=== PATIENT | male | born 1960 | race Caucasian/White ===

== ENCOUNTER 2017-10-07 15:45 | Outpatient (RCR) | payer BC ==
[~2017-10-07 15:45] MED LIST: AMITRIPTYLINE H25 M1 PO; CEPHALEXIN500 M1 PO; FISH OIL1 IU PO; FISH OIL1000 MG PO; GLUCOSAMINE & C1 CA1 PO; GLUCOSAMINE/CHONDROI PO; LORTAB 5/500 501 TAB PO; MULTIPLE VITAMI1 TAB PO; MVI; PRIL40 PO; PRINIVIL10 MG PO; ULTRAM 50MG TAB50 MG PO; ULTRAM PO; ULTRAM50 MG PO
== END 2017-12-07 14:45 | disposition home or self-care (01) ==
LOC: WSPT
DX: M48.062 Spinal stenosis, lumbar region with neurogenic claudication (principal)

== ENCOUNTER → 2017-12-02 | Outpatient (CLI) | payer BC | LOC: COL.RAD 12:00 | DX: E04.1 Nontoxic single thyroid nodule (principal) ==

== ENCOUNTER → 2017-12-07 | Outpatient (CLI) | payer BC | LOC: MHCPAIN 12:07 | DX: G89.29 Other chronic pain (principal); M47.817 Spondylosis without myelopathy or radiculopathy, lumbosacral region; M54.16 Radiculopathy, lumbar region; M53.3 Sacrococcygeal disorders, not elsewhere classified; M96.1 Postlaminectomy syndrome, not elsewhere classified | CPT/HCPCS: G0463 ==

== ENCOUNTER → 2018-01-21 | Outpatient (CLI) | payer BC | LOC: MHCPAIN 10:37 | DX: G89.29 Other chronic pain (principal); M47.817 Spondylosis without myelopathy or radiculopathy, lumbosacral region; M54.16 Radiculopathy, lumbar region; M53.3 Sacrococcygeal disorders, not elsewhere classified; M96.1 Postlaminectomy syndrome, not elsewhere classified | CPT/HCPCS: G0463 ==

== ENCOUNTER 2018-02-18 07:46 | Day surgery (SDC) | payer BC ==
[~2018-02-18] VITALS: Ht 180.3 cm; Wt 105.2 kg
[2018-02-18 08:22] VITALS: BP 148/82; PULSE 63; TEMP 97.6
[2018-02-18] MEDS ORDERED: HYGROTON 2525 MG/TAB PO (08:32)
[2018-02-18] MEDS ORDERED: ATARAX 25MG25 MG/TAB PO (08:33)
[2018-02-18] MEDS ORDERED: COZAAR100 MG PO (08:34)
[2018-02-18] MEDS ORDERED: CATAPRES 0.1MG0.1 MG PO (08:34)
[2018-02-18] MEDS ORDERED: OMEGA-31 SGL PO (08:35)
[2018-02-18] MEDS ORDERED: SINGULAIR 110 MG/TAB PO (08:36)
[2018-02-18] MEDS ORDERED: CYMBALTA 60MG60 MG PO (08:37)
[2018-02-18] MEDS ORDERED: NEURONTIN300 MG/CAP PO (08:41)
[2018-02-18] MEDS ORDERED: LIPITOR20 MG PO (08:42)
[2018-02-18] MEDS ORDERED: ASPIRIN 32325 MG/TAB PO (08:43)
[2018-02-18 11:26] VITALS: BP 95/77; PULSE 63; TEMP 98
[2018-02-18 11:45] VITALS: BP 102/69; PULSE 63
[2018-02-18 12:00] VITALS: BP 108/73; PULSE 63
== END 2018-02-18 13:10 | disposition home or self-care (01) ==
LOC: SDCO 07:46
DX: M96.1 Postlaminectomy syndrome, not elsewhere classified (principal); I10 Essential (primary) hypertension; G89.29 Other chronic pain; M53.3 Sacrococcygeal disorders, not elsewhere classified; M54.16 Radiculopathy, lumbar region; M47.817 Spondylosis without myelopathy or radiculopathy, lumbosacral region; G47.33 Obstructive sleep apnea (adult) (pediatric); F32.9 Major depressive disorder, single episode, unspecified; M19.90 Unspecified osteoarthritis, unspecified site; E66.9 Obesity, unspecified; Z68.31 Body mass index [BMI] 31.0-31.9, adult; Z82.49 Family history of ischemic heart disease and other diseases of the circulatory system; Z83.3 Family history of diabetes mellitus; Z96.641 Presence of right artificial hip joint
CPT/HCPCS: C1778; J0690; J2250; J7120

== ENCOUNTER → 2018-02-25 | Outpatient (CLI) | payer BC ==
[~2018-02-25] MED LIST changes: +ASPIRIN 32325 MG/TAB PO; +ATARAX 25MG25 MG/TAB PO; +CATAPRES 0.1MG0.1 MG PO; +COZAAR100 MG PO; +CYMBALTA 60MG60 MG PO; +HYGROTON 2525 MG/TAB PO; +LIPITOR20 MG PO; +NEURONTIN300 MG/CAP PO; +OMEGA-31 SGL PO; +SINGULAIR 110 MG/TAB PO
== END ==
LOC: MHCPAIN 09:53
DX: G89.29 Other chronic pain (principal); M47.817 Spondylosis without myelopathy or radiculopathy, lumbosacral region; M54.16 Radiculopathy, lumbar region; M53.3 Sacrococcygeal disorders, not elsewhere classified; M96.1 Postlaminectomy syndrome, not elsewhere classified
CPT/HCPCS: G0463

== ENCOUNTER → 2018-03-25 | Day surgery (SDC) | payer BC ==
[2018-03-25 11:50] LABS: BASO # 0.1 (0.0-0.2); BASO % 1.4 % (0.0-2.0); EOS # 0.3 (0.0-0.7); EOS % 5.2 % (0-4.0); GRAN # 3.5 (1.4-6.5); GRAN % 55.2 % (42.2-75.2); HEMOGLOBIN 11.9 g/dl (13.5-18.0); LYMPH # 1.7 (1.2-3.4); LYMPH % 27.2 % (20.0-51.0); MEAN CELL VOLUME 90 fl (80.0-100.0); MEAN CORPUSCULAR HEMOGLOBIN 30 pg (27.0-31.0); MEAN CORPUSCULAR HGB CONC 34 g/dl (33.0-37.0); MEAN PLATELET VOLUME 8.8 fl (7.4-10.4); MONO # 0.7 (0.1-0.6); MONO % 10.7 % (1.7-9.3); PLATELET COUNT 338 K/mm3 (130-400); RED BLOOD COUNT 3.91 M/mm3 (4.20-5.60); REDCELL DISTRIBUTION WIDTH-CV 13.2 % (11.5-14.5)
[2018-03-25 12:08] LABS: MUCOUS Present /lpf; PH 5 (5-8); SQUAMOUS EPITHELIAL None Seen /hpf; URINE APPEARANCE Clear; URINE BACTERIA None Seen /hpf; URINE BILIRUBIN Negative (NEGATIVE); URINE BLOOD Negative (NEGATIVE); URINE COLOR Yellow; URINE GLUCOSE Negative (NEGATIVE); URINE KETONE Negative (NEGATIVE); URINE LEUKOCYTE ESTERASE Negative (NEGATIVE); URINE NITRATE Negative (NEGATIVE); URINE PROTEIN(semi-quant) Negative (NEGATIVE); URINE RBC 0-2 /hpf; URINE UROBILINOGEN Negative (NEGATIVE); URINE WBC 0-2 /hpf
[2018-03-25 12:13] LABS: COLLECTION METHOD CLEAN CATCH
[2018-03-25 12:23] LABS: ERYTHROCYTE SEDIMENTATION RATE 1 mm/hr (0-30)
[2018-03-25 12:25] LABS: ALBUMIN 4.2 gm/dL (3.5-5.0); BILIRUBIN,TOTAL 0.2 mg/dL (0.0-1.0); C-REACTIVE PROTEIN 0.8 mg/dL (0.0-0.9); CALCIUM 9.2 mg/dL (8.4-10.2); CREATININE, serum 1.06 mg/dL (0.66-1.25); POTASSIUM 3.8 mmol/L (3.4-5.0); TOTAL PROTEIN 7.3 gm/dL (6.4-8.2)
== END ==
LOC: SDCO 10:54
PROVIDERS: Anesthesiology Pain Medicine
DX: M96.1 Postlaminectomy syndrome, not elsewhere classified (principal); Z53.8 Procedure and treatment not carried out for other reasons; G89.29 Other chronic pain; M54.5 Low back pain; M53.3 Sacrococcygeal disorders, not elsewhere classified; M43.07 Spondylolysis, lumbosacral region; I10 Essential (primary) hypertension

== ENCOUNTER → 2018-04-12 | Outpatient (CLI) | payer BC ==
[~2018-04-12] MED LIST changes: +VITAMIN FLUSH-F1 CAP PO
== END ==
LOC: MHCPAIN 16:23
DX: G89.29 Other chronic pain (principal); M47.817 Spondylosis without myelopathy or radiculopathy, lumbosacral region; M54.16 Radiculopathy, lumbar region; M53.3 Sacrococcygeal disorders, not elsewhere classified; M96.1 Postlaminectomy syndrome, not elsewhere classified
CPT/HCPCS: G0463

== ENCOUNTER 2018-04-29 08:54 | Day surgery (SDC) | payer BC ==
[~2018-04-29] VITALS: Ht 180.3 cm; Wt 104.6 kg
[2018-04-29] MEDS ORDERED: NITROSTAT0.4 MG/TAB SL (09:32)
[2018-04-29] MEDS ORDERED: TYLENOL 325MG325 MG PO (09:32)
[2018-04-29] MEDS ORDERED: CATAPRES 0.1MG0.1 MG PO (09:33)
[2018-04-29] MEDS ORDERED: ATARAX 25MG25 MG/TAB PO (09:35)
[2018-04-29] MEDS ORDERED: MOBIC15 MG PO (09:35)
[2018-04-29] MEDS ORDERED: FISH OIL 1000MG1 CAP PO (09:36)
[2018-04-29 10:18] VITALS: BP 133/87; PULSE 70; TEMP 97.8
[2018-04-29 14:08] VITALS: BP 118/77; PULSE 68; TEMP 97.3
[2018-04-29 14:15] VITALS: BP 123/68; PULSE 68
[2018-04-29 14:30] VITALS: BP 113/62; PULSE 81
[2018-04-29 14:45] VITALS: BP 114/60; PULSE 95
[2018-04-29] MEDS ORDERED: NORCO 325 MG-51 TAB PO (14:51)
== END 2018-04-29 15:30 | disposition home or self-care (01) ==
LOC: SDCO 08:54
DX: M96.1 Postlaminectomy syndrome, not elsewhere classified (principal); M47.817 Spondylosis without myelopathy or radiculopathy, lumbosacral region; M53.3 Sacrococcygeal disorders, not elsewhere classified; M54.5 Low back pain; G89.29 Other chronic pain; G47.33 Obstructive sleep apnea (adult) (pediatric); I10 Essential (primary) hypertension; M51.36 Other intervertebral disc degeneration, lumbar region
CPT/HCPCS: J0690; J2250; J2704; J3010; J3370; J7120

== ENCOUNTER → 2018-05-06 | Outpatient (CLI) | payer BC ==
[~2018-05-06] MED LIST changes: +FISH OIL 1000MG1 CAP PO; +MOBIC15 MG PO; +NITROSTAT0.4 MG/TAB SL; +NORCO 325 MG-51 TAB PO; +TYLENOL 325MG325 MG PO
== END ==
LOC: MHCPAIN 08:06
DX: G89.29 Other chronic pain (principal); M47.817 Spondylosis without myelopathy or radiculopathy, lumbosacral region; M54.16 Radiculopathy, lumbar region; M53.3 Sacrococcygeal disorders, not elsewhere classified; M96.1 Postlaminectomy syndrome, not elsewhere classified
CPT/HCPCS: G0463

== ENCOUNTER → 2018-06-07 | Outpatient (CLI) | payer BC | LOC: MHCPAIN 14:23 | DX: G89.29 Other chronic pain (principal); M47.817 Spondylosis without myelopathy or radiculopathy, lumbosacral region; M54.16 Radiculopathy, lumbar region; M53.3 Sacrococcygeal disorders, not elsewhere classified; M96.1 Postlaminectomy syndrome, not elsewhere classified | CPT/HCPCS: G0463 ==

== ENCOUNTER → 2018-09-01 | Outpatient (CLI) | payer BC | LOC: MHCPAIN 10:58 | DX: M53.3 Sacrococcygeal disorders, not elsewhere classified (principal) | CPT/HCPCS: G0260; J1040; Q9967 ==

== ENCOUNTER → 2018-10-11 | Outpatient (CLI) | payer BC | LOC: MHCPAIN 12:46 | DX: G89.29 Other chronic pain (principal); M47.817 Spondylosis without myelopathy or radiculopathy, lumbosacral region; M54.16 Radiculopathy, lumbar region; M53.3 Sacrococcygeal disorders, not elsewhere classified; M96.1 Postlaminectomy syndrome, not elsewhere classified | CPT/HCPCS: G0463 ==

== ENCOUNTER → 2018-10-11 | Outpatient (CLI) | payer BC | LOC: COL.RAD 14:09 | DX: M96.1 Postlaminectomy syndrome, not elsewhere classified (principal) ==

== ENCOUNTER 2018-12-22 16:00 | Outpatient (RCR) | payer BC ==
[2018-12-24] MEDS ORDERED: OMNICEF 300MG300 MG PO (20:41)
[2018-12-24] MEDS ORDERED: DOXYCYCLINE 10100 MG PO (20:41)
== END 2018-12-30 14:32 | disposition home or self-care (01) ==
LOC: WSC 16:00
DX: M96.1 Postlaminectomy syndrome, not elsewhere classified (principal); G89.29 Other chronic pain; Z98.1 Arthrodesis status; Z96.9 Presence of functional implant, unspecified

== ENCOUNTER 2018-12-24 18:49 | Emergency (ER) | payer BC ==
[~2018-12-24] VITALS: Ht 180.3 cm; Wt 104.5 kg
[2018-12-24 18:53] VITALS: TEMP 98.1
[2018-12-24] MEDS ORDERED: DOXYCYCLINE 10100 MG PO (20:41)
[2018-12-24] MEDS ORDERED: OMNICEF 300MG300 MG PO (20:41)
[2018-12-24 20:58] VITALS: BP 118/77; PULSE 76
== END 2018-12-24 20:59 | disposition home or self-care (01) ==
LOC: COL.ER 18:49
DX: L03.116 Cellulitis of left lower limb (principal); L03.115 Cellulitis of right lower limb

== ENCOUNTER → 2019-01-03 | Outpatient (CLI) | payer BC ==
[~2019-01-03] MED LIST changes: +DOXYCYCLINE 10100 MG PO; +OMNICEF 300MG300 MG PO
== END ==
LOC: MHCPAIN 13:28
DX: G89.29 Other chronic pain (principal); M47.817 Spondylosis without myelopathy or radiculopathy, lumbosacral region; M54.16 Radiculopathy, lumbar region; M53.3 Sacrococcygeal disorders, not elsewhere classified; M96.1 Postlaminectomy syndrome, not elsewhere classified
CPT/HCPCS: G0463

== ENCOUNTER 2019-01-12 07:24 | Day surgery (SDC) | payer BC ==
[~2019-01-12] VITALS: Ht 180.3 cm; Wt 100.0 kg
[2019-01-12 07:41] VITALS: BP 148/91; PULSE 73; TEMP 98.7
[2019-01-12] MEDS ORDERED: LIORESAL 1010 MG/TAB PO (08:22)
[2019-01-12] MEDS ORDERED: TOPROL XL 25MG25 MG PO (08:23)
[2019-01-12] MEDS ORDERED: MOBIC15 MG PO (08:23)
[2019-01-12] MEDS ORDERED: MOTRIN 200200 MG/TAB PO (08:25)
[2019-01-12] MEDS ORDERED: FERROUS SU325 MG/TAB PO (08:26)
[2019-01-12] MEDS ORDERED: GLUCOSAMINE & C1 CA2 PO (08:26)
[2019-01-12 09:35] VITALS: BP 146/100; PULSE 62
--- NOTE | 2019-01-12 09:35 | NUR ---
Patient returns to [facility] per cart and transfers from cart to recliner with assist of two persons. IV fluids infusing and connected to monitors. Temp 98.7. Spouse in room. Patient denies pain or nausea. Dr. Mar here to talk with the patient and spouse. All questions answered. Allowed to rest. Given coffee to drink per pt request.
[2019-01-12 09:50] VITALS: BP 139/99; PULSE 61
--- NOTE | 2019-01-12 09:50 | NUR ---
Eating muffin and continues to sip on coffee. Denies pain or nausea. Talks with spouse in room.
[2019-01-12 10:05] VITALS: BP 151/91; PULSE 68
--- NOTE | 2019-01-12 10:05 | NUR ---
Tolerated muffin without nasuea. Denies abdominal pain. IV to INT and patient ambulatory to the bathroom with standby assist and use of cane.
--- NOTE | 2019-01-12 10:15 | NUR ---
Returns to room and INT discontinued. Given dismissal instructions and voices understanding of these. Patient able to dress self.
--- NOTE | 2019-01-12 10:25 | NUR ---
Patient dismissed to home driven by spouse per private vehicle and taken to car per wheelchair by RN. Assisted into vehicle and dismissal instructions in hand with Dr. Mar office number for questions and concerns.
== END 2019-01-12 10:25 | disposition home or self-care (01) ==
LOC: SDCO 07:24
DX: K92.1 Melena (principal); D50.0 Iron deficiency anemia secondary to blood loss (chronic); Z80.0 Family history of malignant neoplasm of digestive organs; I10 Essential (primary) hypertension; Z79.82 Long term (current) use of aspirin; Z79.52 Long term (current) use of systemic steroids; E78.5 Hyperlipidemia, unspecified; K21.9 Gastro-esophageal reflux disease without esophagitis; J30.2 Other seasonal allergic rhinitis; R73.01 Impaired fasting glucose; N52.9 Male erectile dysfunction, unspecified; G89.29 Other chronic pain; M54.5 Low back pain; Z96.642 Presence of left artificial hip joint; Z80.9 Family history of malignant neoplasm, unspecified; F17.220 Nicotine dependence, chewing tobacco, uncomplicated; I25.10 Atherosclerotic heart disease of native coronary artery without angina pectoris; M19.90 Unspecified osteoarthritis, unspecified site
CPT/HCPCS: OP; J2704; J7120

== ENCOUNTER 2019-01-19 06:36 | Day surgery (SDC) | payer BC ==
[~2019-01-19] VITALS: Ht 180.3 cm; Wt 101.6 kg
[~2019-01-19 06:36] MED LIST changes: +FERROUS SU325 MG/TAB PO; +GLUCOSAMINE & C1 CA2 PO; +LIORESAL 1010 MG/TAB PO; +MOTRIN 200200 MG/TAB PO; +TOPROL XL 25MG25 MG PO
[2019-01-19 07:11] VITALS: BP 144/90; PULSE 70; TEMP 97.8
[2019-01-19 07:57] VITALS: BP 143/95; PULSE 61; TEMP 98
--- NOTE | 2019-01-19 07:57 | NUR ---
Patient brought back to [facility]. Alert and oriented x4. Ambulated to recliner with out difficulty. Vital signs obtained, WNL. States he would like muffin and coffee. Denies any pain or nausea. at bedside. Call bañuelos within reach, will continue to monitor.
[2019-01-19 08:12] VITALS: BP 136/95; PULSE 56
[2019-01-19 08:27] VITALS: BP 135/78; PULSE 68
--- NOTE | 2019-01-19 08:27 | NUR ---
Patient states he is feeling well and is ready to leave. Muffin and coffee tolerated well. Discharge instructions reviewed with patient and . All questions answered. Will continue to monitor.
--- NOTE | 2019-01-19 08:40 | NUR ---
Patient wheeled down to lobby by this RN. Milagros to drive patient home.
== END 2019-01-19 08:50 | disposition home or self-care (01) ==
LOC: SDCO 06:36
DX: K29.70 Gastritis, unspecified, without bleeding (principal); K25.3 Acute gastric ulcer without hemorrhage or perforation; K92.1 Melena; D50.0 Iron deficiency anemia secondary to blood loss (chronic); I10 Essential (primary) hypertension; K21.9 Gastro-esophageal reflux disease without esophagitis; J30.9 Allergic rhinitis, unspecified; R73.01 Impaired fasting glucose; N52.9 Male erectile dysfunction, unspecified; G89.29 Other chronic pain; M54.5 Low back pain; E29.1 Testicular hypofunction; F17.220 Nicotine dependence, chewing tobacco, uncomplicated; I25.10 Atherosclerotic heart disease of native coronary artery without angina pectoris; G47.33 Obstructive sleep apnea (adult) (pediatric); E66.3 Overweight; Z68.30 Body mass index [BMI] 30.0-30.9, adult; Z79.82 Long term (current) use of aspirin; Z79.51 Long term (current) use of inhaled steroids; Z80.0 Family history of malignant neoplasm of digestive organs; Z96.642 Presence of left artificial hip joint
CPT/HCPCS: J2704

== ENCOUNTER 2019-01-23 07:33 | Emergency (ER) | payer BC ==
[~2019-01-23] VITALS: Ht 180.3 cm; Wt 102.3 kg
[2019-01-23 07:37] VITALS: TEMP 99
[2019-01-23 07:58] LABS: BASO # 0.1 (0.0-0.2); BASO % 0.8 % (0.0-2.0); EOS # 0.1 (0.0-0.7); GRAN % 66.3 % (42.2-75.2); HEMATOCRIT 40.6 % (42.0-52.0); HEMOGLOBIN 13.2 g/dl (13.5-18.0); LYMPH # 1.3 (1.2-3.4); LYMPH % 21.3 % (20.0-51.0); MEAN CELL VOLUME 88 fl (80.0-100.0); MEAN CORPUSCULAR HEMOGLOBIN 29 pg (27.0-31.0); MEAN CORPUSCULAR HGB CONC 33 g/dl (33.0-37.0); MONO # 0.6 (0.1-0.6); MONO % 10.4 % (1.7-9.3); PLATELET COUNT 297 K/mm3 (130-400); REDCELL DISTRIBUTION WIDTH-CV 16.6 % (11.5-14.5)
[2019-01-23 08:03] LABS: INR 1.1 (0.8-3.0); PROTHROMBIN TIME 12.7 SECONDS (9.7-12.8)
[2019-01-23 08:06] LABS: PARTIAL THROMBOPLASTIN TIME 34.4 SECONDS (26.0-37.0)
[2019-01-23 08:09] LABS: ALANINE AMINOTRANSFERASE 14 U/L (21-72); ALBUMIN 4.9 gm/dL (3.5-5.0); ALKALINE PHOSPHATASE 59 U/L (50-136); ANION GAP 12 mmol/L (7-16); AST,SGOT 24 U/L (15-37); BILIRUBIN,TOTAL 0.4 mg/dL (0.0-1.0); BLOOD UREA NITROGEN 18 mg/dL (9-20); CALCIUM 10.1 mg/dL (8.4-10.2); CARBON DIOXIDE 24 mmol/L (22-30); CHLORIDE 106 mmol/L (98-107); CREATININE, serum 1.12 (0.66-1.25); GLUCOSE 113 mg/dL (74-106); LIPASE 53 U/L (23-300); POTASSIUM 4.1 mmol/L (3.4-5.0); SODIUM 142 mmol/L (137-145)
[2019-01-23 08:10] LABS: ALCOHOL(ethanol),MEDICAL < 10 mg/dL
[2019-01-23 08:20] LABS: TROPONIN-I < 0.012 ng/mL (0.000-0.035)
[2019-01-23 09:29] LABS: COLLECTION METHOD CLEAN CATCH
[2019-01-23 09:39] VITALS: BP 149/102; PULSE 72
[2019-01-23 09:44] LABS: MUCOUS Present /lpf; PH 6 (5-8); SQUAMOUS EPITHELIAL 0-2 /hpf; URINE APPEARANCE Hazy; URINE BACTERIA None Seen /hpf; URINE BILIRUBIN Negative (NEGATIVE); URINE BLOOD Negative (NEGATIVE); URINE COLOR Yellow; URINE GLUCOSE Negative (NEGATIVE); URINE KETONE 1+ (NEGATIVE); URINE LEUKOCYTE ESTERASE Negative (NEGATIVE); URINE NITRATE Negative (NEGATIVE); URINE PROTEIN(semi-quant) 1+ (NEGATIVE); URINE RBC 0-2 /hpf; URINE UROBILINOGEN Negative (NEGATIVE)
== END 2019-01-23 09:47 | disposition short-term general hospital (02) ==
LOC: COL.ER 07:33
PROVIDERS: Emergency Medicine
DX: R41.0 Disorientation, unspecified (principal); E78.5 Hyperlipidemia, unspecified; I10 Essential (primary) hypertension; F32.9 Major depressive disorder, single episode, unspecified; E11.9 Type 2 diabetes mellitus without complications
CPT/HCPCS: J7030

== ENCOUNTER → 2019-03-01 | Outpatient (CLI) | payer BC | LOC: MHCPAIN 14:20 | DX: G89.29 Other chronic pain (principal); M47.817 Spondylosis without myelopathy or radiculopathy, lumbosacral region; M54.16 Radiculopathy, lumbar region; M53.3 Sacrococcygeal disorders, not elsewhere classified; M96.1 Postlaminectomy syndrome, not elsewhere classified | CPT/HCPCS: G0463 ==

== ENCOUNTER 2019-03-30 09:20 | Day surgery (SDC) | payer BC ==
[~2019-03-30] VITALS: Ht 180.3 cm; Wt 98.5 kg
[2019-03-30 10:00] VITALS: BP 139/96; PULSE 84; TEMP 16
[2019-03-30 10:35] VITALS: BP 112/80; PULSE 84; TEMP 98.7
--- NOTE | 2019-03-30 10:35 | NUR ---
Patient brought back to [facility] from endo suite. Alert and oriented, ambulated to bed without difficulty. Vital signs stable. Denies any nausea or pain. States he would like a soda, water and muffin. Milagros at bedside. All safety measures in place will continue to monitor.
[2019-03-30 10:50] VITALS: BP 121/89; PULSE 81
--- NOTE | 2019-03-30 10:50 | NUR ---
Vital signs remain stable. Tolerating food and drink without difficulty. WIll continue to monitor.
[2019-03-30 11:05] VITALS: BP 117/79; PULSE 73
--- NOTE | 2019-03-30 11:05 | NUR ---
Discharge instructions reviewed with patient and . IV removed per orders, tolerated well. All questions answered. Patient to get dressed at this time.
--- NOTE | 2019-03-30 11:05 | NUR ---
Patient is feeling well, states he is ready to go home. Vital sign stable.
--- NOTE | 2019-03-30 11:15 | NUR ---
Patient brought down to lobby via wheel chair. To be driven home by matt.
== END 2019-03-30 11:15 | disposition home or self-care (01) ==
LOC: SDCO 09:20
DX: K26.4 Chronic or unspecified duodenal ulcer with hemorrhage (principal); D50.0 Iron deficiency anemia secondary to blood loss (chronic); Z96.642 Presence of left artificial hip joint; Z87.891 Personal history of nicotine dependence; I25.10 Atherosclerotic heart disease of native coronary artery without angina pectoris; G47.33 Obstructive sleep apnea (adult) (pediatric); I10 Essential (primary) hypertension; M19.90 Unspecified osteoarthritis, unspecified site; G89.29 Other chronic pain
CPT/HCPCS: J2704; J7030

== ENCOUNTER 2019-05-19 10:00 | Outpatient (CLI) | payer BC ==
[~2019-05-19] VITALS: Ht 180.3 cm; Wt 100.9 kg
[2019-05-19] VITALS (8 sets, daily range): BP systolic 105–131; BP diastolic 69–99; PULSE 57–62
[2019-05-19] MEDS ORDERED: FLOMAX 0.40.4 MG/CAP PO (10:23)
--- NOTE | 2019-05-19 11:20 | NUR ---
Transferred from Radiology on cart. Transferred to bed independently. VSS baseline. Bandaid to back CD&I. Denies pain and needs at this time
--- NOTE | 2019-05-19 13:36 | NUR ---
Discharge instructions given. Dr. Julissa hooper with discharge. Transferred to private car by johanny
== END 2019-05-19 13:38 | disposition home or self-care (01) ==
LOC: COL.RAD 10:00
DX: M51.35 Other intervertebral disc degeneration, thoracolumbar region (principal); M43.16 Spondylolisthesis, lumbar region; M48.061 Spinal stenosis, lumbar region without neurogenic claudication; K44.9 Diaphragmatic hernia without obstruction or gangrene; M13.88 Other specified arthritis, other site; Z98.1 Arthrodesis status
CPT/HCPCS: Q9967

== ENCOUNTER 2019-09-20 09:25 | Emergency (ER) | payer BC ==
[~2019-09-20] VITALS: Ht 180.3 cm; Wt 90.9 kg
[~2019-09-20 09:25] MED LIST changes: +CYMBALTA 30MG30 MG PO; -CYMBALTA 60MG60 MG PO; +FLOMAX 0.40.4 MG/CAP PO
[2019-09-20 09:37] VITALS: TEMP 97.7
[2019-09-20 10:00] LABS: BASO % 0.3 % (0.0-2.0); EOS % 0.2 % (0-4.0); GRAN # 8.2 (1.4-6.5); GRAN % 85.4 % (42.2-75.2); LYMPH # 0.7 (1.2-3.4); LYMPH % 6.9 % (20.0-51.0); MEAN CELL VOLUME 95 fl (80.0-100.0); MEAN CORPUSCULAR HEMOGLOBIN 31 pg (27.0-31.0); MEAN CORPUSCULAR HGB CONC 33 g/dl (33.0-37.0); MEAN PLATELET VOLUME 8.8 fl (7.4-10.4); MONO # 0.7 (0.1-0.6); MONO % 6.8 % (1.7-9.3); PLATELET COUNT 287 K/mm3 (130-400); RED BLOOD COUNT 3.84 M/mm3 (4.20-5.60); REDCELL DISTRIBUTION WIDTH-CV 14.2 % (11.5-14.5)
[2019-09-20 10:02] LABS: HEMATOCRIT 36.4 % (42.0-52.0)
[2019-09-20 10:21] LABS: ALANINE AMINOTRANSFERASE 20 U/L (21-72); ALBUMIN 4.1 gm/dL (3.5-5.0); ALKALINE PHOSPHATASE 55 U/L (50-136); ANION GAP 8 mmol/L (7-16); AST,SGOT 24 U/L (15-37); BILIRUBIN,TOTAL 0.5 mg/dL (0.0-1.0); BLOOD UREA NITROGEN 10 mg/dL (9-20); C-REACTIVE PROTEIN 4.9 mg/dL (0.0-0.9); CARBON DIOXIDE 25 mmol/L (22-30); CHLORIDE 99 mmol/L (98-107); CREATININE, serum 0.96 (0.66-1.25); GLUCOSE 184 mg/dL (74-106); POTASSIUM 5.1 mmol/L (3.4-5.0); SODIUM 132 mmol/L (137-145); TOTAL PROTEIN 6.8 gm/dL (6.4-8.2)
[2019-09-20 10:22] LABS: ALCOHOL(ethanol),MEDICAL < 10 mg/dL
[2019-09-20 10:24] LABS: ERYTHROCYTE SEDIMENTATION RATE 18 mm/hr (0-30)
[2019-09-20 10:28] LABS: SALICYLATE < 1.0 mg/dL
[2019-09-20 10:34] LABS: TROPONIN-I < 0.012 ng/mL (0.000-0.035)
[2019-09-20 10:36] LABS: COLLECTION METHOD CLEAN CATCH
[2019-09-20 10:52] LABS: PH 8 (5-8); SQUAMOUS EPITHELIAL None Seen /hpf; URINE APPEARANCE Clear; URINE BACTERIA Rare /hpf; URINE BILIRUBIN Negative (NEGATIVE); URINE BLOOD Negative (NEGATIVE); URINE COLOR Straw; URINE GLUCOSE Negative (NEGATIVE); URINE KETONE Negative (NEGATIVE); URINE LEUKOCYTE ESTERASE Negative (NEGATIVE); URINE NITRATE Negative (NEGATIVE); URINE PROTEIN(semi-quant) Negative (NEGATIVE); URINE RBC 0-2 /hpf; URINE UROBILINOGEN Negative (NEGATIVE)
[2019-09-20 11:06] LABS: TRICYCLIC ANTIDEPRESS URINE NEGATIVE
[2019-09-20 11:59] LABS: INR 0.9 (0.8-3.0); PROTHROMBIN TIME 10.8 SECONDS (9.7-12.8)
[2019-09-20 12:19] VITALS: BP 126/94; PULSE 82
== END 2019-09-20 12:19 | disposition short-term general hospital (02) ==
LOC: COL.ER 09:25
PROVIDERS: Emergency Medicine
DX: R41.0 Disorientation, unspecified (principal); I10 Essential (primary) hypertension; E78.5 Hyperlipidemia, unspecified; F17.210 Nicotine dependence, cigarettes, uncomplicated
CPT/HCPCS: J0692; J3370; J7050

== ENCOUNTER 2019-10-01 21:45 | Emergency (ER) | payer BC ==
[~2019-10-01] VITALS: Ht 180.3 cm; Wt 95.5 kg
[2019-10-01 21:59] VITALS: BP 111/74
[2019-10-01 22:10] VITALS: TEMP 97.4
[2019-10-01 22:34] LABS: BASO # 0.1 (0.0-0.2); BASO % 0.8 % (0.0-2.0); EOS # 0.1 (0.0-0.7); EOS % 0.8 % (0-4.0); GRAN # 7.4 (1.4-6.5); HEMATOCRIT 40.6 % (42.0-52.0); HEMOGLOBIN 13.2 g/dl (13.5-18.0); LYMPH # 1.5 (1.2-3.4); LYMPH % 14.9 % (20.0-51.0); MEAN CELL VOLUME 97 fl (80.0-100.0); MEAN CORPUSCULAR HEMOGLOBIN 31 pg (27.0-31.0); MEAN CORPUSCULAR HGB CONC 33 g/dl (33.0-37.0); MEAN PLATELET VOLUME 8.5 fl (7.4-10.4); MONO # 0.7 (0.1-0.6); MONO % 7.2 % (1.7-9.3); PLATELET COUNT 385 K/mm3 (130-400); REDCELL DISTRIBUTION WIDTH-CV 14.9 % (11.5-14.5)
[2019-10-01 22:50] LABS: ALBUMIN 4.9 gm/dL (3.5-5.0); BILIRUBIN,TOTAL 0.3 mg/dL (0.0-1.0); CALCIUM 9.8 mg/dL (8.4-10.2); CREATININE, serum 1.5 (0.66-1.25); POTASSIUM 4.3 mmol/L (3.4-5.0); TOTAL PROTEIN 7.8 gm/dL (6.4-8.2)
[2019-10-01 23:10] LABS: ERYTHROCYTE SEDIMENTATION RATE 8 mm/hr (0-30)
[2019-10-01] MEDS ORDERED: FLEXERIL 1010 MG/TAB PO (23:21)
[2019-10-01] MEDS ORDERED: NORCO 325 MG-51 TAB PO (23:21)
[2019-10-02 00:40] VITALS: PULSE 94
== END 2019-10-02 00:40 | disposition home or self-care (01) ==
LOC: COL.ER 21:45
PROVIDERS: Emergency Medicine
DX: M54.5 Low back pain (principal); I10 Essential (primary) hypertension; F17.290 Nicotine dependence, other tobacco product, uncomplicated; Z98.1 Arthrodesis status
CPT/HCPCS: J1885; J2060; J3010; J7030

== ENCOUNTER → 2019-10-24 | Outpatient (CLI) | payer BC ==
[~2019-10-24] MED LIST changes: +FLEXERIL 1010 MG/TAB PO
[2019-10-24 19:46] LABS: C-REACTIVE PROTEIN 5.7 mg/dL (0.0-0.9); CALCIUM 8.3 mg/dL (8.4-10.2); CREATININE, serum 0.82 (0.66-1.25); POTASSIUM 4.4 mmol/L (3.4-5.0)
[2019-10-24 19:53] LABS: BASO # 0.1 (0.0-0.2); BASO % 0.7 % (0.0-2.0); EOS # 0.2 (0.0-0.7); EOS % 2.5 % (0-4.0); GRAN # 4.3 (1.4-6.5); GRAN % 63.1 % (42.2-75.2); LYMPH # 1.6 (1.2-3.4); LYMPH % 22.6 % (20.0-51.0); MEAN CELL VOLUME 99 fl (80.0-100.0); MEAN CORPUSCULAR HGB CONC 31 g/dl (33.0-37.0); MEAN PLATELET VOLUME 9.1 fl (7.4-10.4); MONO # 0.7 (0.1-0.6); MONO % 10.8 % (1.7-9.3); PLATELET COUNT 470 K/mm3 (130-400); RED BLOOD COUNT 2.59 M/mm3 (4.20-5.60); REDCELL DISTRIBUTION WIDTH-CV 15.7 % (11.5-14.5)
[2019-10-24 19:55] LABS: HEMATOCRIT 25.6 % (42.0-52.0); HEMOGLOBIN 7.9 g/dl (13.5-18.0); MEAN CORPUSCULAR HEMOGLOBIN 31 pg (27.0-31.0)
[2019-10-24 20:58] LABS: ERYTHROCYTE SEDIMENTATION RATE 114 mm/hr (0-30)
== END ==
LOC: COL.LAB 19:20
PROVIDERS: Family Medicine
DX: Z01.89 Encounter for other specified special examinations (principal)

== ENCOUNTER → 2019-11-06 | Outpatient (CLI) | payer BC ==
[2019-11-06 21:31] LABS: BASO # 0.1 (0.0-0.2); BASO % 1.3 % (0.0-2.0); EOS # 0.1 (0.0-0.7); EOS % 2.6 % (0-4.0); GRAN # 3.3 (1.4-6.5); GRAN % 61.2 % (42.2-75.2); HEMOGLOBIN 10.1 g/dl (13.5-18.0); LYMPH # 1.2 (1.2-3.4); LYMPH % 23.3 % (20.0-51.0); MEAN CELL VOLUME 96 fl (80.0-100.0); MEAN CORPUSCULAR HEMOGLOBIN 29 pg (27.0-31.0); MEAN CORPUSCULAR HGB CONC 31 g/dl (33.0-37.0); MEAN PLATELET VOLUME 9.2 fl (7.4-10.4); MONO # 0.6 (0.1-0.6); MONO % 11.4 % (1.7-9.3); PLATELET COUNT 456 K/mm3 (130-400); RED BLOOD COUNT 3.45 M/mm3 (4.20-5.60); REDCELL DISTRIBUTION WIDTH-CV 15.6 % (11.5-14.5)
[2019-11-06 21:48] LABS: C-REACTIVE PROTEIN 1.9 mg/dL (0.0-0.9); CALCIUM 9.6 mg/dL (8.4-10.2); CREATININE, serum 0.86 (0.66-1.25); POTASSIUM 4.8 mmol/L (3.4-5.0)
[2019-11-06 21:59] LABS: ERYTHROCYTE SEDIMENTATION RATE 62 mm/hr (0-30)
== END ==
LOC: COL.LAB 21:21
PROVIDERS: Internal Medicine Infectious Disease
DX: T81.49XA Infection following a procedure, other surgical site, initial encounter (principal); S31.000A Unspecified open wound of lower back and pelvis without penetration into retroperitoneum, initial encounter

== ENCOUNTER → 2019-11-13 | Outpatient (CLI) | payer BC ==
[2019-11-13 15:27] LABS: C-REACTIVE PROTEIN 2.8 mg/dL (0.0-0.9); CALCIUM 9.4 mg/dL (8.4-10.2); CREATININE, serum 1.22 (0.66-1.25); POTASSIUM 5.1 mmol/L (3.4-5.0)
[2019-11-13 15:30] LABS: BASO # 0.1 (0.0-0.2); BASO % 0.9 % (0.0-2.0); EOS # 0.1 (0.0-0.7); EOS % 1.9 % (0-4.0); GRAN % 62.5 % (42.2-75.2); HEMATOCRIT 34.5 % (42.0-52.0); HEMOGLOBIN 10.6 g/dl (13.5-18.0); LYMPH # 1.4 (1.2-3.4); LYMPH % 21.6 % (20.0-51.0); MEAN CELL VOLUME 94 fl (80.0-100.0); MEAN CORPUSCULAR HEMOGLOBIN 29 pg (27.0-31.0); MEAN CORPUSCULAR HGB CONC 31 g/dl (33.0-37.0); MEAN PLATELET VOLUME 9.3 fl (7.4-10.4); MONO # 0.8 (0.1-0.6); MONO % 12.8 % (1.7-9.3); PLATELET COUNT 399 K/mm3 (130-400); RED BLOOD COUNT 3.68 M/mm3 (4.20-5.60)
[2019-11-13 15:54] LABS: ERYTHROCYTE SEDIMENTATION RATE 38 mm/hr (0-30)
== END ==
LOC: ZCOL.LAB 15:06
PROVIDERS: Internal Medicine Infectious Disease
DX: S31.000A Unspecified open wound of lower back and pelvis without penetration into retroperitoneum, initial encounter (principal); B95.61 Methicillin susceptible Staphylococcus aureus infection as the cause of diseases classified elsewhere

== ENCOUNTER → 2019-11-21 | Outpatient (CLI) | payer BC ==
[2019-11-21 09:39] LABS: BASO # 0.1 (0.0-0.2); BASO % 0.9 % (0.0-2.0); EOS # 0.2 (0.0-0.7); EOS % 2.5 % (0-4.0); GRAN # 4.1 (1.4-6.5); LYMPH # 1.6 (1.2-3.4); LYMPH % 24.8 % (20.0-51.0); MEAN CELL VOLUME 94 fl (80.0-100.0); MEAN CORPUSCULAR HGB CONC 32 g/dl (33.0-37.0); MEAN PLATELET VOLUME 9.8 fl (7.4-10.4); MONO # 0.6 (0.1-0.6); MONO % 8.6 % (1.7-9.3); PLATELET COUNT 290 K/mm3 (130-400); RED BLOOD COUNT 3.28 M/mm3 (4.20-5.60); REDCELL DISTRIBUTION WIDTH-CV 14.8 % (11.5-14.5)
[2019-11-21 09:43] LABS: HEMATOCRIT 30.7 % (42.0-52.0); HEMOGLOBIN 9.7 g/dl (13.5-18.0); MEAN CORPUSCULAR HEMOGLOBIN 30 pg (27.0-31.0)
[2019-11-21 09:47] LABS: CALCIUM 8.9 mg/dL (8.4-10.2); CREATININE, serum 0.91 (0.66-1.25); POTASSIUM 4.4 mmol/L (3.4-5.0)
[2019-11-21 09:48] LABS: C-REACTIVE PROTEIN 0.5 mg/dL (0.0-0.9)
== END ==
LOC: ZCOL.LAB 09:21 → COL.LAB 09:21
PROVIDERS: Neurological Surgery
DX: T81.41XA Infection following a procedure, superficial incisional surgical site, initial encounter (principal)

== ENCOUNTER → 2019-12-04 | Outpatient (CLI) | payer BC ==
[~2019-12-04] MED LIST changes: +IMODIUM 2MG CAPS2 MG PO; +IRON TABLETS325 MG PO
[2019-12-04 18:39] LABS: C-REACTIVE PROTEIN 2.5 mg/dL (0.0-0.9); CALCIUM 10.1 mg/dL (8.4-10.2); CREATININE, serum 1.21 (0.66-1.25); POTASSIUM 4.8 mmol/L (3.4-5.0)
[2019-12-04 18:51] LABS: BASO # 0.1 (0.0-0.2); BASO % 1.2 % (0.0-2.0); EOS # 0.2 (0.0-0.7); EOS % 3.7 % (0-4.0); GRAN % 60.9 % (42.2-75.2); HEMOGLOBIN 11.7 g/dl (13.5-18.0); LYMPH # 1.2 (1.2-3.4); LYMPH % 25.4 % (20.0-51.0); MEAN CELL VOLUME 93 fl (80.0-100.0); MEAN CORPUSCULAR HEMOGLOBIN 29 pg (27.0-31.0); MEAN CORPUSCULAR HGB CONC 31 g/dl (33.0-37.0); MEAN PLATELET VOLUME 9.6 fl (7.4-10.4); MONO # 0.4 (0.1-0.6); MONO % 8.6 % (1.7-9.3); PLATELET COUNT 365 K/mm3 (130-400); REDCELL DISTRIBUTION WIDTH-CV 14.8 % (11.5-14.5)
[2019-12-04 19:49] LABS: ERYTHROCYTE SEDIMENTATION RATE 20 mm/hr (0-30)
== END ==
LOC: ZCOL.LAB 14:45
PROVIDERS: Neurological Surgery
DX: Z98.890 Other specified postprocedural states (principal)

== ENCOUNTER 2019-12-05 10:11 | Outpatient (CLI) | payer BC ==
[~2019-12-05] VITALS: Ht 180.3 cm; Wt 105.2 kg
[~2019-12-05 10:11] MED LIST changes: -IMODIUM 2MG CAPS2 MG PO; -IRON TABLETS325 MG PO
[2019-12-05 10:41] VITALS: BP 121/82; PULSE 69; TEMP 97.8
[2019-12-05] MEDS ORDERED: FLEXERIL 1010 MG/TAB PO (10:43)
[2019-12-05] MEDS ORDERED: NORCO 325 MG-51 TAB PO (10:47)
[2019-12-05] MEDS ORDERED: IMODIUM 2MG CAPS2 MG PO (10:51)
[2019-12-05] MEDS ORDERED: HYGROTON 2525 MG/TAB PO (10:52)
[2019-12-05] MEDS ORDERED: IRON TABLETS325 MG PO (10:53)
== END 2019-12-05 10:55 | disposition home or self-care (01) ==
LOC: EUO 10:11
DX: B95.61 Methicillin susceptible Staphylococcus aureus infection as the cause of diseases classified elsewhere (principal); T81.42XA Infection following a procedure, deep incisional surgical site, initial encounter

== ENCOUNTER 2019-12-06 13:15 | Emergency (ER) | payer BC ==
[~2019-12-06] VITALS: Ht 180.3 cm; Wt 95.5 kg
[~2019-12-06 13:15] MED LIST changes: +IMODIUM 2MG CAPS2 MG PO; +IRON TABLETS325 MG PO
[2019-12-06 13:16] VITALS: TEMP 97.9
[2019-12-06 13:42] LABS: INR 0.9 (0.8-3.0)
[2019-12-06 13:44] LABS: ALANINE AMINOTRANSFERASE < 6 U/L (21-72); ALBUMIN 4.6 gm/dL (3.5-5.0); ALCOHOL(ethanol),MEDICAL 211 mg/dL; ALKALINE PHOSPHATASE 81 U/L (50-136); ANION GAP 13 mmol/L (7-16); AST,SGOT 27 U/L (15-37); BILIRUBIN,TOTAL 0.3 mg/dL (0.0-1.0); BLOOD UREA NITROGEN 22 mg/dL (9-20); CARBON DIOXIDE 23 mmol/L (22-30); CHLORIDE 108 mmol/L (98-107); CREATININE, serum 1.13 (0.66-1.25); GLUCOSE 114 mg/dL (74-106); MAGNESIUM 2.1 mg/dL (1.6-2.3); POTASSIUM 4.2 mmol/L (3.4-5.0); SODIUM 144 mmol/L (137-145); TOTAL PROTEIN 7.8 gm/dL (6.4-8.2)
[2019-12-06 13:45] LABS: PARTIAL THROMBOPLASTIN TIME 30.8 SECONDS (26.0-37.0)
[2019-12-06 14:13] LABS: BASO # 0.1 (0.0-0.2); BASO % 1.6 % (0.0-2.0); EOS # 0.1 (0.0-0.7); EOS % 2.5 % (0-4.0); GRAN # 3.2 (1.4-6.5); GRAN % 62.6 % (42.2-75.2); HEMOGLOBIN 11.4 g/dl (13.5-18.0); LYMPH # 1.3 (1.2-3.4); LYMPH % 24.7 % (20.0-51.0); MEAN CELL VOLUME 92 fl (80.0-100.0); MEAN CORPUSCULAR HEMOGLOBIN 29 pg (27.0-31.0); MEAN CORPUSCULAR HGB CONC 31 g/dl (33.0-37.0); MONO # 0.4 (0.1-0.6); MONO % 8.4 % (1.7-9.3); PLATELET COUNT 329 K/mm3 (130-400); RED BLOOD COUNT 3.97 M/mm3 (4.20-5.60); REDCELL DISTRIBUTION WIDTH-CV 14.8 % (11.5-14.5)
[2019-12-06 14:14] LABS: HEMATOCRIT 36.7 % (42.0-52.0)
[2019-12-06 15:58] VITALS: BP 140/92; PULSE 68
== END 2019-12-06 15:46 | disposition home or self-care (01) ==
LOC: COL.ER 13:15
PROVIDERS: Emergency Medicine
DX: S06.0X0A Concussion without loss of consciousness, initial encounter (principal); S01.01XA Laceration without foreign body of scalp, initial encounter; F10.129 Alcohol abuse with intoxication, unspecified; R40.2412 Glasgow coma scale score 13-15, at arrival to emergency department; Y90.7 Blood alcohol level of 200-239 mg/100 ml; W07.XXXA Fall from chair, initial encounter; Y92.009 Unspecified place in unspecified non-institutional (private) residence as the place of occurrence of the external cause
CPT/HCPCS: J7030

== ENCOUNTER → 2020-04-10 | Outpatient (CLI) | payer BC | LOC: COL.LAB 08:35 | DX: Z01.812 Encounter for preprocedural laboratory examination (principal); Z20.828 Contact with and (suspected) exposure to other viral communicable diseases ==

== ENCOUNTER → 2020-04-25 | Outpatient (CLI) | payer BC | LOC: ZCOL.LAB 08:15 | DX: Z01.812 Encounter for preprocedural laboratory examination (principal); Z20.828 Contact with and (suspected) exposure to other viral communicable diseases ==

== ENCOUNTER 2020-07-02 09:00 | Outpatient (RCR) | payer BC | END 2020-07-10 10:42 | disposition home or self-care (01) | LOC: WSC 09:00 | DX: M16.11 Unilateral primary osteoarthritis, right hip (principal) ==

== ENCOUNTER 2020-09-18 16:47 | Emergency (ER) | payer BC ==
[~2020-09-18] VITALS: Ht 180.3 cm; Wt 90.0 kg
[2020-09-18 17:54] LABS: BASO # 0.1 (0.0-0.2); BASO % 0.7 % (0.0-2.0); EOS # 0.1 (0.0-0.7); EOS % 1.1 % (0-4.0); GRAN # 4.9 (1.4-6.5); GRAN % 66.3 % (42.2-75.2); HEMATOCRIT 43.9 % (42.0-52.0); HEMOGLOBIN 14.5 g/dl (13.5-18.0); LYMPH # 1.7 (1.2-3.4); LYMPH % 22.1 % (20.0-51.0); MEAN CELL VOLUME 89 fl (80.0-100.0); MEAN CORPUSCULAR HEMOGLOBIN 29 pg (27.0-31.0); MEAN CORPUSCULAR HGB CONC 33 g/dl (33.0-37.0); MEAN PLATELET VOLUME 9.3 fl (7.4-10.4); MONO # 0.7 (0.1-0.6); MONO % 9.5 % (1.7-9.3); PLATELET COUNT 320 K/mm3 (130-400); RED BLOOD COUNT 4.96 M/mm3 (4.20-5.60); REDCELL DISTRIBUTION WIDTH-CV 12.8 % (11.5-14.5)
[2020-09-18 18:47] LABS: ALANINE AMINOTRANSFERASE 20 U/L (4-49); ALBUMIN 4.3 gm/dL (3.5-5.0); ALKALINE PHOSPHATASE 78 U/L (50-136); ANION GAP 8 mmol/L (7-16); AST,SGOT 23 U/L (15-37); BILIRUBIN,TOTAL 0.4 mg/dL (0.0-1.0); BLOOD UREA NITROGEN 11 mg/dL (9-20); CALCIUM 9.4 mg/dL (8.4-10.2); CARBON DIOXIDE 27 mmol/L (22-30); CHLORIDE 103 mmol/L (98-107); CREATININE, serum 0.85 (0.66-1.25); GLUCOSE 101 mg/dL (74-106); POTASSIUM 4.3 mmol/L (3.4-5.0); SODIUM 138 mmol/L (137-145)
[2020-09-18 19:02] LABS: TROPONIN-I < 0.012 ng/mL (0.000-0.035)
[2020-09-18 21:02] VITALS: BP 137/93; PULSE 71; TEMP 97.6
== END 2020-09-18 21:13 | disposition home or self-care (01) ==
LOC: COL.ER 16:47
PROVIDERS: Emergency Medicine; Nurse Practitioner
DX: I10 Essential (primary) hypertension (principal); F17.290 Nicotine dependence, other tobacco product, uncomplicated
CPT/HCPCS: J0360; J1885

== ENCOUNTER 2020-09-30 13:00 | Outpatient (RCR) | payer BC | END 2020-10-07 | disposition still patient (30) | LOC: WSPT | DX: R53.1 Weakness (principal); Z98.1 Arthrodesis status; Z96.641 Presence of right artificial hip joint ==

== ENCOUNTER 2021-03-27 20:32 | Emergency (ER) | payer BC ==
[~2021-03-27] VITALS: Ht 180.3 cm; Wt 86.4 kg
[2021-03-27 20:38] VITALS: TEMP 98.1
[2021-03-27 21:20] LABS: BASO # 0.1 (0.0-0.2); BASO % 0.8 % (0.0-2.0); EOS # 0.4 (0.0-0.7); EOS % 4.9 % (0-4.0); GRAN # 4.3 (1.4-6.5); GRAN % 58.6 % (42.2-75.2); HEMOGLOBIN 12.5 g/dl (13.5-18.0); LYMPH # 1.7 (1.2-3.4); LYMPH % 23.5 % (20.0-51.0); MEAN CELL VOLUME 90 fl (80.0-100.0); MEAN CORPUSCULAR HEMOGLOBIN 31 pg (27.0-31.0); MEAN CORPUSCULAR HGB CONC 34 g/dl (33.0-37.0); MEAN PLATELET VOLUME 9.2 fl (7.4-10.4); MONO # 0.9 (0.1-0.6); MONO % 11.9 % (1.7-9.3); PLATELET COUNT 251 K/mm3 (130-400); REDCELL DISTRIBUTION WIDTH-CV 13.9 % (11.5-14.5)
[2021-03-27 21:21] LABS: HEMATOCRIT 36.7 % (42.0-52.0)
[2021-03-27 21:33] LABS: ALANINE AMINOTRANSFERASE 21 U/L (4-49); ALBUMIN 4.2 gm/dL (3.5-5.0); ALKALINE PHOSPHATASE 73 U/L (50-136); ANION GAP 8 mmol/L (7-16); AST,SGOT 29 U/L (15-37); BILIRUBIN,TOTAL 0.2 mg/dL (0.0-1.0); BLOOD UREA NITROGEN 24 mg/dL (9-20); CALCIUM 9.3 mg/dL (8.4-10.2); CARBON DIOXIDE 25 mmol/L (22-30); CHLORIDE 104 mmol/L (98-107); CREATININE, serum 1.08 (0.66-1.25); GLUCOSE 108 mg/dL (74-106); POTASSIUM 4.3 mmol/L (3.4-5.0); SODIUM 137 mmol/L (137-145); TOTAL PROTEIN 6.8 gm/dL (6.4-8.2)
[2021-03-27 21:37] LABS: ACETAMINOPHEN < 10 ug/mL (10-30); ALCOHOL(ethanol),MEDICAL < 10 mg/dL
[2021-03-28 07:01] VITALS: BP 109/70; PULSE 64
== END 2021-03-28 07:01 | disposition home or self-care (01) ==
LOC: COL.ER 20:32
PROVIDERS: Personal Emergency Response Attendant
DX: T44.7X1A Poisoning by beta-adrenoreceptor antagonists, accidental (unintentional), initial encounter (principal); T43.211A Poisoning by selective serotonin and norepinephrine reuptake inhibitors, accidental (unintentional), initial encounter; T43.591A Poisoning by other antipsychotics and neuroleptics, accidental (unintentional), initial encounter; T42.4X1A Poisoning by benzodiazepines, accidental (unintentional), initial encounter; T42.6X1A Poisoning by other antiepileptic and sedative-hypnotic drugs, accidental (unintentional), initial encounter; F32.9 Major depressive disorder, single episode, unspecified; F41.9 Anxiety disorder, unspecified; Z79.899 Other long term (current) drug therapy
CPT/HCPCS: J2310; J7030

== ENCOUNTER → 2023-01-19 | Outpatient (CLI) | payer BC | LOC: COL.RAD 15:17 | DX: I12.9 Hypertensive chronic kidney disease with stage 1 through stage 4 chronic kidney disease, or unspecified chronic kidney disease (principal); N18.32 Chronic kidney disease, stage 3b ==

== ENCOUNTER → 2023-10-06 | Outpatient (CLI) | payer BC ==
[~2023-10-06] MED LIST changes: +ASPIRIN 81M81 MG/TA2 PO; +COLON HEALTH PO; +CYMBALTA 60MG60 MG PO; +ELIQUIS 5MG PO; -IRON TABLETS325 MG PO; +KLONOPIN 1MG1 MG PO; +LAMICTAL150 MG PO; +NATURAL IRON65 MG PO; +NORVASC 10MG10 MG PO; +NORVASC 5MG5 MG/TAB PO; +OXYGEN NASAL.CANN; +RISPERDAL 1M1 MG/TAB PO; +TYLENOL 500MG500 MG PO; +WALKER MC; +WELLBUTRIN SR100 M1 PO; +[UNRECOGNIZED DRUG - OTHER] PO
== END ==
LOC: COL.RAD 08:30
DX: I26.99 Other pulmonary embolism without acute cor pulmonale (principal)
CPT/HCPCS: Q9967

== ENCOUNTER → 2023-11-01 | Outpatient (CLI) | payer BC | LOC: COL.CARD 08:42 | DX: R06.02 Shortness of breath (principal) ==